=== PATIENT | female | born 1980 | race Caucasian/White ===

== ENCOUNTER 2016-06-21 18:40 | Inpatient (IN) | payer BC ==
[~2016-06-21] VITALS: Ht 157.5 cm; Wt 114.4 kg
[2016-06-21] MEDS ORDERED: ONDANSETRON 2 MG/ML (Z0FRAN) 2 ML VIAL IV ONE (19:15)
[2016-06-21] MEDS ORDERED: HYDROmorphone 1 MG/ML (DILAUDID) SYRINGE IV PRN ×3 (19:15→23:25)
[2016-06-21] MEDS ORDERED: SODIUM CHLORIDE FLUSH 10 ML SYR IV PRN (19:15)
[2016-06-21] MEDS ORDERED: SODIUM CHLORIDE FLUSH 3 ML SYR IV PRN (19:15)
[2016-06-21 19:32] LABS: BASOPHILS % (AUTO) 0 % (0-2); EOSINOPHILS # (AUTO) 0.1 10^3uL; EOSINOPHILS % (AUTO) 1 % (0-4); LYMPHOCYTES # (AUTO) 0.9 X10^3; MEAN CORPUSCULAR HEMOGLOBIN 29.3 PG (26.0-34.0); MEAN CORPUSCULAR VOLUME 81 FL (80-100); MEAN PLATELET VOLUME 9.3 FL (6.0-9.5); MONOCYTES # (AUTO) 0.3 X10^3; MONOCYTES % (AUTO) 5 % (3-11); NEUTROPHILS # (AUTO) 5.3 X10^3; NEUTROPHILS % (AUTO) 80 % (51-67); PLATELET COUNT 312 10^3uL (150-450); WHITE BLOOD COUNT 6.58 10^3uL (4.0-11.0)
[2016-06-21 19:37] LABS: MEAN CORPUSCULAR HGB CONC 36.3 g/dL (31.0-37.0)
[2016-06-21 19:42] LABS: ALBUMIN 4.9 g/dL (3.4-5.0); ANION GAP 19.1 MEQ/L (3-15); CALCULATED IONIZED CALCIUM 3.6 mg/dL (3.8-4.6); TOTAL PROTEIN 8.6 g/dL (6.4-8.5)
--- NOTE | 2016-06-21 19:50 | NUR ---
PT STARTED GETTING DIAPHORETIC WITH NAUSEA. COOL COMPRESS TO FOREHEAD. BP= 190/100, 55. RECHECKED MANUAL BP =190/100, 54
--- NOTE | 2016-06-21 21:15 | NUR ---
PT NOW FEELS BETTER. NO C/O PAIN AT THIS TIME. PT NO LONGER DIAPHORETIC AND PALE. BP 183/85, 66.
--- NOTE | 2016-06-21 21:17 | NUR ---
PT UNABLE TO VOID FOR UA. -3RD FLOOR NURSE MADE AWARE.
[2016-06-21] MEDS ORDERED: ACETAMINOPHEN 325 MG TAB (TYLENOL) PO PRN (21:25)
[2016-06-21] MEDS ORDERED: PROMETHAZINE HCL INJ 12.5 MG in SODIUM CHLORIDE 25 ML IV PRN (21:25)
[2016-06-21] MEDS ORDERED: ONDANSETRON 2 MG/ML (Z0FRAN) 2 ML VIAL IV PRN (21:25)
[2016-06-21] MEDS ORDERED: ONDANSETRON 4 MG (ZOFRAN) ORAL DISSOLVE TAB PO PRN (21:25)
[2016-06-21] MEDS: LACTATED RINGERS 1,000 ML IV SCH (21:40)
--- NOTE | 2016-06-21 21:40 | NUR ---
Pt admitted to 319 via cart from ED. Ambulates to weight chair and bed independently. Dr Cardenas in room. Pt rates upper abd pain at 5/10. See admission assessment for further details.
[2016-06-21 22:24] LABS: BILIRUBIN,URINE Negative (Negative); CLARITY,URINE Clear; COLOR,URINE Yellow; GLUCOSE, URINE (UA) Negative (Negative); LEUKOCYTE ESTERASE ,URINE Negative (Negative); PH,URINE 6.5 (5.0 - 8.0); UROBILINOGEN,URINE 0.2 mg/dL (0.2-1.0)
[2016-06-21 22:28] VITALS: BP 198/92
[2016-06-21 22:29] LABS: RBC,URINE 0-2 /HPF; URINE CENTRIFUGED VOLUME 12 mL
[2016-06-21] MEDS: KETOROLAC 15 MG/ML (TORADOL) 1 ML VIAL IV SCH (23:10)
[2016-06-21 23:43] VITALS: BP 191/102
[2016-06-22] MEDS: LACTATED RINGERS 1,000 ML IV SCH ×4 (02:44→22:49)
[2016-06-22 04:16] VITALS: BP 158/83
[2016-06-22 05:45] LABS: BASOPHILS % (AUTO) 0 % (0-2); EOSINOPHILS % (AUTO) 0 % (0-4); LYMPHOCYTES # (AUTO) 1.8 X10^3; MEAN CORPUSCULAR HEMOGLOBIN 28.9 PG (26.0-34.0); MEAN CORPUSCULAR VOLUME 81 FL (80-100); MEAN PLATELET VOLUME 9.1 FL (6.0-9.5); MONOCYTES # (AUTO) 0.4 X10^3; MONOCYTES % (AUTO) 8 % (3-11); NEUTROPHILS # (AUTO) 3.1 X10^3; NEUTROPHILS % (AUTO) 58 % (51-67); PLATELET COUNT 300 10^3uL (150-450); WHITE BLOOD COUNT 5.28 10^3uL (4.0-11.0)
[2016-06-22] MEDS: KETOROLAC 15 MG/ML (TORADOL) 1 ML VIAL IV SCH ×4 (05:50→23:50)
--- NOTE | 2016-06-22 05:52 | NUR ---
Pt rests in short intervals throughout the night. Up frequently to urinate. Resp even and non labored on RA. Pt states that her abdominal pain "comes and goes," but is controlled with ANGELIQUE toradol. LR infusing w/o difficulty. No needs at this time.
[2016-06-22 05:59] LABS: MEAN CORPUSCULAR HGB CONC 35.7 g/dL (31.0-37.0)
[2016-06-22 06:54] LABS: ALBUMIN 4.3 g/dL (3.4-5.0); ANION GAP 13.5 MEQ/L (3-15); PHOSPHORUS 3.8 mg/dL (2.4-4.9)
[2016-06-22 07:39] VITALS: BP 168/76
--- NOTE | 2016-06-22 07:40 | NUR ---
Pt resting in bed with door ajar. Watching tv. Alert/oriented x4. Rates abdominal pain 2/10- denies need for pain meds, denies n/v. Educated pt to notify nurse if increasing pain or development of n/v. Verbalizes understanding. Remains NPO- awaiting gallbladder US. IVF infusing as ordered- LR @200ml/hr into 20g LBH. Call light within reach. Denies further needs.
--- NOTE | 2016-06-22 08:15 | NUR ---
SONO in room for gallbladder US.
[2016-06-22] MEDS ORDERED: MAGNESIUM HYDROXIDE 80MG/ML (MILK OF MAGNESIA) 30 ML UDC PO PRN (09:20)
[2016-06-22] MEDS ORDERED: POLYETHYLENE GLYCOL 17 GM (MIRALAX) PACKET PO PRN (09:20)
[2016-06-22] MEDS ORDERED: DOCUSATE SODIUM 100 MG (COLACE) CAP PO PRN (09:20)
--- NOTE | 2016-06-22 10:59 | NUR ---
NUTRITION ASSESSMENT Level 1 Patient: Rebecca Burns Age/Sex: 35/F Date Screened: 06-22-16 Weight: 256.7#/116.7 kg Height: 62 inches Primary Diagnosis: acute pancreatitis Diet Order: NPO Relevant labs: glucose 101, amylase 2,367 (yesterday), lipase 10,308 (yesterday) Food allergies: PEANUTS Nutrition Assessment Criteria Age over 80: N Body Mass Index (BMI) under 19: N Admission Screening Indicates Risk? N Moderate/High Risk Diagnosis: 3 points TPN or PPN: N NPO or clear liquid diet: Yes Serum Glucose <70 or >180: N Hgb A1c >6.7: N/A Total: 3 points Risk Screen: __ Patient at low nutritional risk based on available data; reevaluate in 5-7 days _X_ Patient at moderate nutritional risk based on available data; reevaluate in 3-5 days __ Patient at high nutritional risk; complete Nutrition Assessment within 48 hours of admission. Comments: Patient is normally healthy, and has been trying to lose weight. Unsure yet if she will need cholecystectomy; will reassess as documented above re: plan of care and nutritional status.
[2016-06-22 11:23] VITALS: BP 157/88
--- NOTE | 2016-06-22 12:00 | NUR ---
MED REC COMPLETE--current med list obtained from patient interview conducted by Chitra Barlow, Pharm. D. Candidate 2017.
[2016-06-22 15:34] VITALS: BP_SYST 153; BP_SYST 553; BP_DIAS 79
--- NOTE | 2016-06-22 17:13 | NUR ---
Pt resting quietly in bed, watching tv. denies any abdominal pain or n/v. Ready for drinks- thirsty.
[2016-06-22] MEDS ORDERED: SODIUM CHLORIDE FLUSH 10 ML SYR IV PRN (19:15)
[2016-06-22] MEDS ORDERED: SODIUM CHLORIDE FLUSH 3 ML SYR IV PRN (19:15)
[2016-06-22 19:20] VITALS: BP 155/84
[2016-06-23] VITALS: BP 145/70
[2016-06-23 04:08] VITALS: BP 150/83
[2016-06-23] MEDS: KETOROLAC 15 MG/ML (TORADOL) 1 ML VIAL IV SCH ×3 (05:41→17:54)
--- NOTE | 2016-06-23 05:43 | NUR ---
Pt rests in long intervals throughout the night. Denies pain. Resp even and non labored on RA. LR infusing w/o difficulty. Pt states that she hopes her lab work is better so "I can drink some water." No needs at this time.
[2016-06-23 06:36] LABS: ALBUMIN 4.2 g/dL (3.4-5.0); ANION GAP 15.6 MEQ/L (3-15); TOTAL PROTEIN 7.2 g/dL (6.4-8.5)
[2016-06-23] MEDS: LACTATED RINGERS 1,000 ML IV SCH (06:47)
--- NOTE | 2016-06-23 07:25 | NUR ---
Patient resting in bed upon shift assessment. Alert and oriented X3. Denies abdominal pain, tenderness, nausea, or other distress. States "I am just thirsty". Bowel sounds audible in all quadrants. IVF infusing without difficulty. Updated on plan of care for shift. Call light in reach.
[2016-06-23 07:30] VITALS: BP 148/75
[2016-06-23 11:37] VITALS: BP 141/67
[2016-06-23 15:38] VITALS: BP 139/76
--- NOTE | 2016-06-23 17:59 | NUR ---
Patient tolerates clear liquid lunch tray and low fat supper tray well. Denies pain throughout entire day shift. Ambulates in [place] independently. IVF discontinued per Dr. Root. Resting in bed watching TV at this time. Call light in reach.
[2016-06-23 19:48] VITALS: BP 166/57
--- NOTE | 2016-06-23 20:00 | NUR ---
Patient resting in bed. Watching TV. Denies pain or nausea. Taking fluids without nausea. No concerns at this time. Call light within reach.
[2016-06-24 00:36] VITALS: BP 151/82
[2016-06-24 05:05] VITALS: BP 149/73
[2016-06-24 07:37] VITALS: BP 149/70
--- NOTE | 2016-06-24 09:43 | NUR ---
Discharge order received. IV discontinued with catheter intact. No redness or swelling noted at insertion site. Instructions provided to patient with verbal and written understanding expressed. Dismissed ambulatory to private car accompanied by KIER OPERATOR and mom. No further needs.
== END 2016-06-24 09:44 | disposition home or self-care (01) | DRG 439 ==
LOC: ED 18:43 → MED/SURG 20:50
PROVIDERS: ADMIT Internal Medicine; ATTEND Internal Medicine
DX: K85.90 Acute pancreatitis without necrosis or infection, unspecified (principal); Z68.42 Body mass index [BMI] 45.0-49.9, adult; I10 Essential (primary) hypertension; L68.0 Hirsutism; E66.9 Obesity, unspecified; K76.0 Fatty (change of) liver, not elsewhere classified
CPT/HCPCS: 36415; 76705; 80053; 80069; 81003; 81015; 81025; 82150; 83690; 85025; 86140; 96361; 96374; 96375; 99283; 99285